=== PATIENT | male | born 1955 | race Caucasian/White ===

== ENCOUNTER 2017-08-14 19:45 | Emergency (ER) | payer BC ==
[2017-08-14 19:51] VITALS: RESP 16; TEMP 98
[2017-08-14] MEDS ORDERED: Sodium Chloride 0.9% 1,000 ML IV STA (20:15)
[2017-08-14 20:47] LABS: BASO % 0.4 % (0.0-2.0); EOS # 0.1 K/uL (0.0-0.7); EOS % 1.6 % (0.0-4.0); HEMATOCRIT 39.7 % (35.0-51.0); LYMPH # 1.9 K/uL (1.0-4.3); LYMPH % 30.4 % (20.0-40.0); MEAN CELL VOLUME 88.3 fl (80.0-94.0); MEAN CORPUSCULAR HEMOGLOBIN 29.3 pg (27.0-31.0); MEAN CORPUSCULAR HGB CONC 33.2 g/dL (33.0-37.0); MEAN PLATELET VOLUME 7.8 fl (7.2-11.7); MONO # 0.5 K/uL (0.0-0.8); MONO % 8.4 % (0.0-10.0); NEUT # 3.7 K/uL (1.8-7.0); NEUT % 59.2 % (50.0-75.0); NRBC % 0.2 % (0.0-0.0); RED CELL DISTRIBUTION WIDTH 14.4 % (11.5-14.5); WHITE BLOOD COUNT 6.3 K/uL (4.8-10.8)
--- NOTE | 2017-08-14 20:56 | ED PDOC ---
Syncope/Near Syncope/Dizziness Time Seen by Provider: 08/14/17 20:07 Chief Complaint (Nursing): Syncope Chief Complaint (Provider): Syncope History Per: Patient, Family History/Exam Limitations: no limitations Onset/Duration Of Symptoms: Hrs Current Symptoms Are (Timing): Gone Now Number Of Syncopal Episodes: 2 Activity At Onset Of Symptoms: Sitting Additional Complaint(s): 61yo male, history of hypertension, states he went to the dentist today for a procedure, and reports he had not eaten anything all day. Patient states he had local anesthesia during the procedure and had two teeth pulled. He states he went home with prescriptions for Tylenol with codeine, and amoxicillin; patient states he took 2 tabs of amoxicillin at home and 1 tab of the Tylenol with codeine. Patient state he then went to do some work on his computer and was dizzy, light headed and passed out. The states she heard a "thud" and went upstairs where she saw the patient appeared pale and lethargic; also states the patient had another syncopal episode which she witnessed. Upon arrival to ER, patient reports he feels better. He currently has some dizziness, denies any shortness of breath, headache, chest pain. No other medical complaints. Past Medical History Reviewed: Historical Data, Nursing Documentation, Vital Signs Vital Signs: Last Vital Signs Temp 98.0 F 08/14/17 19:48 Pulse 52 L 08/14/17 19:48 Resp 16 08/14/17 19:48 BP 58/36 L 08/14/17 19:48 Pulse Ox 99 08/14/17 19:48 - Medical History PMH: No Chronic Diseases - Surgical History Surgical History: No Surg Hx - Family History Family History: States: No Known Family Hx - Living Arrangements Living Arrangements: With Family - Allergies Allergies/Adverse Reactions: Allergies Allergy/AdvReac Type Severity Reaction Status Date / Time No Known Allergies Allergy Unverified 02/09/13 14:56 Review of Systems ROS Statement: Except As Marked, All Systems Reviewed And Found Negative Cardiovascular: Negative for: Chest Pain, Light Headedness Respiratory: Negative for: Shortness of Breath Neurological: Positive for: Dizziness. Negative for: Headache Physical Exam - Reviewed Nursing Documentation Reviewed: Yes Vital Signs Reviewed: Yes - Physical Exam Appears: Positive for: Non-toxic, No Acute Distress Head Exam: Positive for: ATRAUMATIC, NORMAL INSPECTION, NORMOCEPHALIC Skin: Positive for: Pallor. Negative for: Warm (patient cool to touch) Eye Exam: Positive for: Normal appearance ENT: Positive for: Other (lower lip abrasion noted) Neck: Positive for: Supple Cardiovascular/Chest: Positive for: Regular Rate, Rhythm Respiratory: Positive for: Normal Breath Sounds. Negative for: Respiratory Distress Neurologic/Psych: Positive for: Alert, Oriented. Negative for: Motor/Sensory Deficits - Laboratory Results Result Diagrams: 08/14/17 20:05 08/14/17 20:05 - ECG O2 Sat by Pulse Oximetry: 99 (RA) Pulse Ox Interpretation: Normal Medical Decision Making Medical Decision Making: Impression: Syncope in setting of likely dehydration, malnutrition and opiate use. Plan: -- CT Head -- Lab -- EKG -- IV Fluids Reassess 2330 Pt. much improved. Head CT negative. BP improved significantly after fluids. Pt. ate and walked around ER without any recurrence of dizziness or syncope. Advised patient to keep up fluid status and followup with primary care doctor. Return precautions were discussed. Scribe Attestation: Documented by Aliyah Henning acting as a scribe for Taco Cole MD. Provider Attestation: All medical record entries made by the Scribe were at my direction and personally dictated by me. I have reviewed the chart and agree that the record accurately reflects my personal performance of the history, physical exam, medical decision making, and the department course for this patient. I have also personally directed, reviewed, and agree with the discharge instructions and disposition. Disposition - Clinical Impression Clinical Impression: Syncope - Disposition Referrals: Darius Rush [Medical Doctor] - Disposition: Routine/Home Disposition Time: 23:25 Condition: IMPROVED Instructions: Syncope (DC) Forms: [facility] (Azeri)
[2017-08-14 21:04] LABS: BLOOD UREA NITROGEN 16 mg/dl (9-20); CALCIUM 8.8 mg/dL (8.4-10.2); CARBON DIOXIDE 29 mmol/L (22-30); CHLORIDE 99 mmol/L (98-107); GFR AFRICAN-AMERICAN > 60; GLUCOSE,RANDOM 122 mg/dL (75-110); POTASSIUM 3.2 MMOL/L (3.6-5.0); SODIUM 138 mmol/l (132-148)
[2017-08-14 23:58] VITALS: BP 106/66; PULSE 61; O2SAT 98
--- NOTE | 2017-08-15 08:09 | CT ---
PROCEDURE: CT HEAD WITHOUT CONTRAST. HISTORY: syncope, head injury Relevant surgical history: Dental extraction August 14, 2017. COMPARISON: None available. TECHNIQUE: Axial computed tomography images were obtained through the head/brain without intravenous contrast. Coronal and sagittal reconstructed images. Radiation dose: Total exam DLP = mGy-cm. This CT exam was performed using one or more of the following dose reduction techniques: Automated exposure control, adjustment of the mA and/or kV according to patient size, and/or use of iterative reconstruction technique. FINDINGS: HEMORRHAGE: No intracranial hemorrhage. BRAIN: No mass effect or edema. No atrophy or chronic microvascular ischemic changes. VENTRICLES: Unremarkable. No hydrocephalus. CALVARIUM: Unremarkable. PARANASAL SINUSES: Acute appendicitis, high density material within the right maxillary sinus. Mean Hounsfield unit values 66.9 consistent with blood, hemorrhagic products. Findings consistent with, clinically appropriate, dental extraction on the right side. Maxilla and mandible are not visualized. MASTOID AIR CELLS: Unremarkable as visualized. No inflammatory changes. OTHER FINDINGS: None. IMPRESSION: Normal CT of the Head. No acute intracranial abnormalities. No significant findings to account for the clinical presentation. Additional incidental findings described in greater detail. Concordant results (preliminary interpretation) provided by [facility]. Procedure Completed: 20:56 Preliminary ([facility]Rad) Report: Dictated and Authenticated: 21:25. Final Interpretation: 08:08. August 15, 2017.
--- NOTE | 2017-08-15 19:05 | CARD ---
APPROVED REPORT EKG Measurement Heart [id number] <Conclusion> Sinus bradycardia Moderate voltage criteria for LVH, may be normal variant Borderline ECG
== END 2017-08-14 23:58 | disposition home or self-care (01) ==
LOC: H.ER 19:45
DX: R55 Syncope and collapse (principal)
CPT/HCPCS: 70450; 80048; 82948; 84484; 85025; 93005; 96361; 96374; 99285; J2405; J7040

== ENCOUNTER 2019-01-04 00:02 | Emergency (ER) | payer BC ==
[2019-01-04 00:14] VITALS: BP 147/87; PULSE 73; RESP 16; TEMP 98.5; O2SAT 98
[2019-01-04] MEDS ORDERED: diaZEpam 10 mg/2 ml Inj IM STA (01:23)
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
== END 2019-01-04 03:40 | disposition home or self-care (01) ==
LOC: H.ER 00:02
DX: M54.2 Cervicalgia (principal); M62.838 Other muscle spasm
CPT/HCPCS: 72125; 96372; 99283; J1885